=== PATIENT | female | born 1935 | race African-American/Black ===

== ENCOUNTER 2019-01-21 10:27 | Inpatient (IN) | payer MEDICARE, BC ==
[~2019-01-21] VITALS: Ht 172.7 cm; Wt 78.5 kg
[2019-01-21] MEDS ORDERED: ONDANSETRON HCL 4MG/2ML INJ IV STA (11:15)
[2019-01-21] MEDS ORDERED: MORPHINE SULFATE 4 MG/ML CPJ (NOT FOR IM USE) IV STA (11:15)
[2019-01-21] MEDS ORDERED: SODIUM CHLORIDE 0.9% 1,000 ML IV ONE ×2 (11:15→14:30)
[2019-01-21 12:02] LABS: CLARITY URINE CLEAR (CLEAR); COLOR URINE YELLOW (YELLOW); KETONES URINE TRACE (NEGATIVE); LEUKOCYTE ESTERASE URINE 2+ (NEGATIVE); NITRITE URINE NEGATIVE (NEGATIVE); OCCULT BLOOD URINE NEGATIVE (NEGATIVE); PH URINE 5.5 (4.5-8.0); PROTEIN URINE NEGATIVE (NEGATIVE); SPECIFIC GRAVITY URINE 1.016 (1.005-1.030); UROBILINOGEN URINE 0.2 E.U./dL (0.2-1.0)
[2019-01-21 12:58] LABS: BASOPHILS % 0.4 % (0.0-2.0); EOSINOPHILS % 0.3 % (0.0-5.0); HEMATOCRIT. 41.2 % (36.0-48.0); HEMOGLOBIN. 14.3 g/dL (12.0-16.0); LYMPHOCYTES % 19.7 % (20.0-50.0); MEAN CORPUSCULAR VOLUME 92.1 fL (81.0-99.0); MEAN PLATELET VOLUME 8.7 fl (7.4-10.4); MONOCYTES % 6.8 % (2.0-8.0); NEUTROPHILS % 72.8 % (40.0-76.0); PLATELET 192 x1000/uL (130-400); RED BLOOD CELL COUNT 4.48 mill/uL (4.2-5.4); RED CELL DISTRIBUTION WIDTH 13.2 % (11.6-14.6)
[2019-01-21] MEDS ORDERED: CEFTRIAXONE 1 G PREMIX 50 ML IV ONE (13:00)
[2019-01-21 13:05] LABS: CHLORIDE 107 mEq/L (98-107)
[2019-01-21] MEDS ORDERED: CEFTRIAXONE 1,000 MG in DEXTROSE 5% WATER 50 ML IV SCH (13:15)
[2019-01-21 13:21] LABS: CREATINE KINASE 719 IU/L (26-192)
[2019-01-21 16:55] VITALS: BP 122/55
[2019-01-21] MEDS ORDERED: ACETAMINOPHEN 325MG TABLET PO PRN (17:30)
[2019-01-21] MEDS ORDERED: CLONIDINE 0.1MG TABLET PO PRN (17:30)
[2019-01-21] MEDS ORDERED: ENOXAPARIN 30MG/0.3ML SYR SUBCUT SCH (18:00)
[2019-01-21] MEDS: SODIUM CHLORIDE 0.9% 1,000 ML IV SCH (18:20)
[2019-01-21] MEDS: GABAPENTIN 100MG CAPSULE PO SCH (18:21)
[2019-01-21] MEDS ORDERED: GABA-529 MT (19:13)
[2019-01-21 20:00] VITALS: BP 113/55
[2019-01-22] VITALS: BP 119/55
[2019-01-22 04:00] VITALS: BP 128/59
[2019-01-22] MEDS: SODIUM CHLORIDE 0.9% 1,000 ML IV SCH ×2 (05:52→17:24)
[2019-01-22 08:00] VITALS: BP 140/55
[2019-01-22 08:02] LABS: HEMATOCRIT 38.1 % (36.0-48.0); MEAN CORPUSCULAR HEMOGLOBIN 31.4 pg (28.0-32.0); MEAN CORPUSCULAR VOLUME 92.1 fL (81.0-99.0); PLATELET 171 x1000/uL (130-400); RED BLOOD CELL COUNT 4.13 mill/uL (4.2-5.4); RED CELL DISTRIBUTION WIDTH 13.3 % (11.6-14.6)
[2019-01-22] MEDS: GABAPENTIN 100MG CAPSULE PO SCH ×2 (08:36→17:21)
[2019-01-22 08:45] LABS: CHLORIDE 108 mEq/L (98-107)
[2019-01-22 09:06] LABS: CREATINE KINASE 1055 IU/L (26-192)
[2019-01-22 12:00] VITALS: BP 134/65
[2019-01-22 16:00] VITALS: BP 131/61
[2019-01-22] MEDS: ENOXAPARIN 40MG/0.4ML SYR SUBCUT SCH (17:22)
[2019-01-22 20:00] VITALS: BP 99/49
[2019-01-23] VITALS: BP 137/63
[2019-01-23 04:00] VITALS: BP 150/71
[2019-01-23] MEDS: SODIUM CHLORIDE 0.9% 1,000 ML IV SCH ×2 (05:52→17:06)
[2019-01-23 08:00] VITALS: BP 142/61
[2019-01-23] MEDS: GABAPENTIN 100MG CAPSULE PO SCH ×2 (08:35→17:06)
[2019-01-23 12:00] VITALS: BP 120/66
[2019-01-23 16:00] VITALS: BP 139/54
[2019-01-23] MEDS: ENOXAPARIN 40MG/0.4ML SYR SUBCUT SCH (17:05)
[2019-01-23 18:47] LABS: BASOPHILS % 0.6 % (0.0-2.0); EOSINOPHILS % 4.3 % (0.0-5.0); HEMATOCRIT. 38.9 % (36.0-48.0); HEMOGLOBIN. 13.2 g/dL (12.0-16.0); LYMPHOCYTES % 52.9 % (20.0-50.0); MEAN CORPUSCULAR HEMOGLOBIN 31.3 pg (28.0-32.0); MEAN CORPUSCULAR VOLUME 92.1 fL (81.0-99.0); MEAN PLATELET VOLUME 8.6 fl (7.4-10.4); MONOCYTES % 10.5 % (2.0-8.0); NEUTROPHILS % 31.7 % (40.0-76.0); PLATELET 199 x1000/uL (130-400); RED BLOOD CELL COUNT 4.22 mill/uL (4.2-5.4); RED CELL DISTRIBUTION WIDTH 13.3 % (11.6-14.6)
[2019-01-23 18:50] LABS: CHLORIDE 110 mEq/L (98-107)
[2019-01-23 19:00] LABS: CREATINE KINASE 497 IU/L (26-192)
[2019-01-23 20:00] VITALS: BP 120/48
[2019-01-24] VITALS: BP 124/55
[2019-01-24 04:00] VITALS: BP 118/61
[2019-01-24] MEDS: GABAPENTIN 100MG CAPSULE PO SCH (07:54)
[2019-01-24] MEDS: SODIUM CHLORIDE 0.9% 1,000 ML IV SCH (07:55)
[2019-01-24 08:00] VITALS: BP 142/54
[2019-01-24 10:47] VITALS: BP 142/54
== END 2019-01-24 11:47 | disposition home health service (06) | DRG 558 ==
LOC: ER 10:28 → 7WST 14:24 → EDBEDREQ 14:27 → EDBEDREQTM 14:27 → ENRESERV 14:49 → CANBEDREQ 14:50 → EDBEDREQ 15:01 → ENRESERV 15:06
PROVIDERS: ADMIT Family Medicine; ATTEND Family Medicine
DX: M62.82 Rhabdomyolysis (principal); G62.9 Polyneuropathy, unspecified; I10 Essential (primary) hypertension; W18.11XA Fall from or off toilet without subsequent striking against object, initial encounter; Y93.89 Activity, other specified; Y92.89 Other specified places as the place of occurrence of the external cause; Y99.8 Other external cause status
CPT/HCPCS: 36415; 71045; 81003; 82550; 84484; 85027; 93005; 97162; 97166; 99285; J0696; J1650; J7030; J7060